=== PATIENT | male | born 1995 | race Hispanic/Latino ===

== ENCOUNTER 2018-06-25 08:20 | Emergency (ER) | payer OTHER ==
[2018-06-25 09:50] LABS: RAPID GROUP A STREP NEGATIVE (NEGATIVE)
== END 2018-06-25 10:02 | disposition home or self-care (01) ==
LOC: EDH 08:20
DX: J09.X2 Influenza due to identified novel influenza A virus with other respiratory manifestations (principal)
CPT/HCPCS: 87804; 87880